=== PATIENT | female | born 1950 | race Two or more races ===

== ENCOUNTER 2017-04-27 11:43 | Emergency (ER) | payer MEDICARE, MEDICAID ==
[~2017-04-27] VITALS: Ht 160 cm; Wt 70.0 kg
[2017-04-27] MEDS ORDERED: ONDANSETRON 4MG ODT PO ONE (12:30)
[2017-04-27] MEDS ORDERED: KETOROLAC 60MG/2ML VIAL IM ONE (12:30)
[2017-04-27 13:55] VITALS: BP 143/81
== END 2017-04-27 14:50 | disposition home or self-care (01) ==
LOC: ER 12:01
DX: M54.9 Dorsalgia, unspecified (principal); M19.90 Unspecified osteoarthritis, unspecified site; I10 Essential (primary) hypertension; Z88.5 Allergy status to narcotic agent
CPT/HCPCS: 72100; 96372; 99284; J1885; Q0162